=== PATIENT | female | born 1930 ===

== ENCOUNTER → 2016-05-03 | Outpatient (CLI) | payer OTHER, BC ==
[~2016-05-03] MED LIST: ACET325T96 PO; ASPEC325 PO; ATOR-24 PO; FIBER; FURO-85 PO; GLUC10007 PO; LEVO50TA6 PO; METO-551 PO; NTRSL3 UT; RXC5 PO
[2016-05-03 12:59] LABS: ALT/SGPT 17 U/L (12-78); BASO % 0.3 %; BASO ABS # 0.03 K/uL (0-0.2); BLOOD UREA NITROGEN 14 mg/dl (7-18); BUN/CREATININE RATIO 16.5 (10-20); CALCIUM 9.4 mg/dl (8.5-10.1); CARBON DIOXIDE 30 mmol/L (21-32); CHLORIDE 106 mmol/L (98-107); CHOLESTEROL 167 mg/dl (0-200); COMPLETE YES; CREATININE 0.84 mg/dl (0.60-1.20); EOS % 1.4 %; GLUCOSE 91 mg/dl (70-99); HEMATOCRIT 44.2 % (37-47); IG% 0.3 %; LYMPH % 42.4 %; LYMPH ABS # 3.83 K/uL (1.2-3.4); MEAN CELL VOLUME 91.7 fL (80-100); MEAN CORPUSCULAR HEMOGLOBIN 30.5 pg (25-34); MEAN CORPUSCULAR HGB CONC 33.3 g/dl (32-36); MEAN PLATELET VOLUME 10.1 fL (7.4-10.4); MONO % 7.6 %; PLATELET COUNT 199 K/uL (130-400); POTASSIUM 4.2 mmol/L (3.5-5.1); RED BLOOD COUNT 4.82 M/uL (4.2-5.4); SODIUM 142 mmol/L (136-145); TRIGLYCERIDES 128 mg/dl (0-150); VERY LOW DENSITY LIPOPROT CALC 26 mg/dl; WHITE BLOOD COUNT 9.03 K/uL (4.8-10.8)
[2016-05-03 13:08] LABS: ALB/GLOB RATIO 1.3 (0.9-2); ALKALINE PHOSPHATASE 76 U/L (45-117); AST/SGOT 16 U/L (15-37); CHOLESTEROL/HDL RATIO 2.7; HDL CHOLESTEROL 61 mg/dl; LDL CHOLESTEROL CALCULATED 80 mg/dl
== END | disposition home or self-care (01) ==
LOC: C.LABMFLN 08:13
PROVIDERS: ATTEND Family Medicine
DX: I25.10 Atherosclerotic heart disease of native coronary artery without angina pectoris (principal); E78.5 Hyperlipidemia, unspecified; E03.9 Hypothyroidism, unspecified